=== PATIENT | female | born 1955 | race Caucasian/White ===

== ENCOUNTER 2018-04-11 09:42 | Emergency (ER) | payer BC, OTHER ==
[~2018-04-11] VITALS: Ht 165.1 cm; Wt 68.0 kg
[2018-04-11 09:48] VITALS: BP_SYST 120
--- NOTE | 2018-04-11 09:52 | NUR ---
Patient to ER bed 4 to gown for evaluation. Side rails up. Assumed care.
--- NOTE | 2018-04-11 09:55 | NUR ---
Patient arrived via POV, AAOx4, and ambulatory with steady gait. Patient states she went hiking and fell down an embankment. Patient states she is able to bear weight, minimal pain, and numbness to site. Patients laceration 4cm long, minimal bleeding, cleaned with betadine and normal saline. Will continue to follow up and monitor.
--- NOTE | 2018-04-11 10:05 | NUR ---
ER at bedside examining patient.
[2018-04-11] MEDS ORDERED: BACITRACIN 1 GM OINT TP ONE (10:30)
[2018-04-11] MEDS ORDERED: LIDOCAINE 1% 10 MG/ML, 20 ML MDV IJ ONE (10:30)
--- NOTE | 2018-04-11 10:50 | NUR ---
at bedside for suturing.
[2018-04-11] MEDS ORDERED: DIPH-TET-PERTUS Vaccine 0.5 ML VIAL (ADACEL) I.M. ONE (11:15)
--- NOTE | 2018-04-11 11:50 | NUR ---
Patient given written and verbal discharge instructions and verbalizes understanding. ER MD discussed with patient the results and treatment provided. Patient in stable condition. ID arm band removed. Rx of tylenol given. Patient educated on pain management and to follow up with PMD. Pain Scale 0. Opportunity for questions provided and answered. Medication side effect fact sheet provided.
[2018-04-11 11:55] VITALS: BP_SYST 120
== END 2018-04-11 11:50 | disposition home or self-care (01) ==
LOC: SED 09:42
DX: S81.011A Laceration without foreign body, right knee, initial encounter (principal); W18.09XA Striking against other object with subsequent fall, initial encounter; Y93.01 Activity, walking, marching and hiking; Y92.89 Other specified places as the place of occurrence of the external cause; Y99.8 Other external cause status
CPT/HCPCS: 12002; 73564; 90471; 90715; 99283; J2001

== ENCOUNTER 2023-10-20 10:59 | Day surgery (SDC) | payer OTHER, MEDICARE ==
[~2023-10-20] VITALS: Ht 165.1 cm; Wt 76.0 kg
[~2023-10-20 10:59] MED LIST: CEFAZOLIN 2 GM IVPB PREMIX 50 ML IV ONE; CEPH-548 PO; HYDR-3917 PO; IBUP-1969 PO
[2023-10-20] MEDS ORDERED: LIDOCAINE MPF 2% 20 MG/1 ML, 5 ML VIAL INH ONE (11:50)
[2023-10-20 12:19] VITALS: O2SAT 97
[2023-10-20] MEDS ORDERED: PROPOFOL DRIP 100 ML IV ONE (12:36)
[2023-10-20] MEDS ORDERED: NALOXONE HCL 0.4 MG/ML AMP (NARCAN) IVP PRN (14:00)
[2023-10-20] MEDS ORDERED: hydrALAZINE HCL 20 MG/ML VIAL IV PRN (14:00)
[2023-10-20] MEDS ORDERED: ONDANSETRON HCL 4 MG/2 ML VIAL IVP PRN (14:00)
[2023-10-20] MEDS ORDERED: HYDROmorphone 1 MG/ML INJ. CARTRIDGE IVP PRN ×2 (14:00)
[2023-10-20 15:35] VITALS: BP_SYST 126; PULSE 70; RESP 18
== END 2023-10-20 11:53 | disposition home or self-care (01) ==
LOC: SDS 10:59 → SMU 11:02 → SDS 11:53
PROVIDERS: ATTEND Orthopaedic Surgery Sports Medicine
DX: S66.126A Laceration of flexor muscle, fascia and tendon of right little finger at wrist and hand level, initial encounter (principal); S66.124A Laceration of flexor muscle, fascia and tendon of right ring finger at wrist and hand level, initial encounter; S64.496A Injury of digital nerve of right little finger, initial encounter; W25.XXXA Contact with sharp glass, initial encounter; Z98.891 History of uterine scar from previous surgery; Y93.89 Activity, other specified; Y92.89 Other specified places as the place of occurrence of the external cause; Y99.8 Other external cause status
CPT/HCPCS: 26356 ×3; 64831; 26055; 29125; 87081; 64417; J3490; J0690; J2704; J7120; A4565